=== PATIENT | female | born 1985 ===

== ENCOUNTER 2018-03-22 17:45 | Emergency (ER) | payer MEDICAID ==
[2018-03-22] MEDS ORDERED: APAP/OXYCODONE 1 EACH TABLET PO ONE (18:57)
[2018-03-22] MEDS ORDERED: APAP/OXYCODONE 1 EACH TABLET ONE (19:00)
[2018-03-22 19:07] VITALS: RESP 16; TEMP 97.5
[2018-03-22 19:20] VITALS: BP 149/107; PULSE 81; O2SAT 97
== END 2018-03-22 19:09 | disposition home or self-care (01) | DRG 914 ==
LOC: ED 17:45
DX: S89.92XA Unspecified injury of left lower leg, initial encounter (principal); W00.0XXA Fall on same level due to ice and snow, initial encounter
CPT/HCPCS: 99283; A9270-GY; L1830